=== PATIENT | female | born 1955 ===

== ENCOUNTER 2017-12-06 08:19 | Emergency (ER) | payer OTHER ==
--- NOTE | ~2017-12-06 | EKG ---
[place], [place] ELECTROCARDIOGRAM REPORT NAME: JUNIOR WELDON UNIT #: [id number] ROOM: DOCTOR: JOHNSON DRAFT REPORT BIRTHDATE: [birth year] [facility] Test Date: 2017-12-06 Test Time: 08:38:25 Pat Name: JUNIOR WELDON Department: Room: Gender: F Manager Hardware: Stella Lentz : 1955 Requested By: ANTOINETTE REAL Order Number: [id number] Reading MD: Remigio Cortes MD Measurements Intervals [place] Rate: 71 P: 22 CT: 148 QRS: -21 QRSD: 96 T: 93 QT: 369 QTc: 401 Interpretive Statements Sinus rhythm Borderline left axis deviation Abnormal R-wave progression, late transition Borderline T wave abnormalities Electronically Signed On 12-06-2017 12:48:43 PDT by Remigio Cortes MD CM:EKGRPT:ELECTROCARDIOGRAM REPORT [id number] ANTOINETTE REAL MD EPIPHADRIAN DRAFT REPORT ANTOINETTE REAL MD
[2017-12-06 08:40] LABS: BASO % 0.2 % (0.0-1.0); EOS # 0.1 10*3/uL (0.0-0.4); EOS % 0.6 % (1.0-4.0); HEMATOCRIT 49.8 % (37.0-47.0); HEMOGLOBIN 16.2 g/dl (12.0-16.0); LYMPH # 1.8 10*3/uL (1.3-4.4); LYMPH % 17.7 % (27.0-41.0); MEAN CELL VOLUME 90.2 fl (81.0-99.0); MEAN CORPUSCULAR HGB 29.3 pg (27.0-31.0); MEAN CORPUSCULAR HGB CONC 32.5 g/dl (33.0-37.0); MEAN PLATELET VOLUME 10.3 fl (9.6-12.3); MONO # 0.3 10*3/uL (0.1-1.0); MONO % 2.6 % (3.0-9.0); NEUT # 8.1 10*3/uL (2.3-7.9); NEUT % 78.7 % (47.0-73.0); PLATELET COUNT AUTOMATED 292 10*3/uL (130-400); RED BLOOD COUNT 5.52 10*6/uL (4.10-5.10); RED CELL DISTRI WIDTH 12.8 % (0-14.5); WHITE BLOOD COUNT 10.2 10*3/uL (4.8-10.8)
[2017-12-06 08:49] LABS: ACT PARTIAL THROMBO TIME 22.5 SECONDS (20.8-31.5)
[2017-12-06 08:57] LABS: ALBUMIN 3.7 gm/dl (3.1-4.5); ALKALINE PHOSPHATASE 83 U/L (45-117); BUN 25 mg/dl (7-24); CHLORIDE 109 mmol/L (98-107); CREATININE 0.94 mg/dL (0.55-1.02); POTASSIUM 4.1 mmol/L (3.5-5.1); SGOT/AST 21 IU/L (3-35); SGPT/ALT 35 U/L (12-78); SODIUM 143 mmol/L (136-145); TOTAL PROTEIN 7.1 gm/dL (6.4-8.2)
[2017-12-06 08:59] LABS: TROPONIN I < 0.015 ng/ml (<0.045)
[2017-12-06 08:59] LABS: BILIRUBIN NEGATIVE (NEGATIVE); BLOOD NEGATIVE (NEGATIVE); CLARITY SL CLOUDY (CLEAR); COLOR YELLOW (YELLOW); GLUCOSE NEGATIVE (NEGATIVE); KETONE TRACE (NEGATIVE); LEUKO ESTERASE NEGATIVE (NEGATIVE); NITRITE NEGATIVE (NEGATIVE); PH 5.5 (5.0-9.0); SPECIFIC GRAVITY >= 1.030 (1.005-1.030); UROBILINOGEN 0.2 E.U./dl (0.2-1.0)
[2017-12-06 09:05] LABS: BACTERIA TRACE; CALCIUM OXALATE CRYSTALS 1+; EPITHELIAL CELLS 16-20; MUCOUS 1+
== END 2017-12-06 10:30 | disposition home or self-care (01) ==
LOC: ED 08:19
PROVIDERS: Emergency Medicine
DX: S00.83XA Contusion of other part of head, initial encounter (principal); R55 Syncope and collapse; E86.0 Dehydration; W22.8XXA Striking against or struck by other objects, initial encounter; Y93.89 Activity, other specified; Y92.89 Other specified places as the place of occurrence of the external cause; Y99.8 Other external cause status

== ENCOUNTER → 2022-04-07 | Outpatient (CLI) | payer MEDICARE, OTHER | END | disposition home or self-care (01) | LOC: RESCLI 13:08 | PROVIDERS: ATTEND Internal Medicine | DX: G43.909 Migraine, unspecified, not intractable, without status migrainosus (principal); I10 Essential (primary) hypertension; F32.9 Major depressive disorder, single episode, unspecified; Z82.49 Family history of ischemic heart disease and other diseases of the circulatory system; Z98.890 Other specified postprocedural states; Z79.899 Other long term (current) drug therapy ==

== ENCOUNTER → 2023-04-21 | Outpatient (CLI) | payer MEDICARE, OTHER | END | disposition home or self-care (01) | LOC: RESCLI 10:43 | PROVIDERS: ATTEND Student in an Organized Health Care Education/Training Program | DX: E28.2 Polycystic ovarian syndrome (principal); K76.0 Fatty (change of) liver, not elsewhere classified; I10 Essential (primary) hypertension; G43.909 Migraine, unspecified, not intractable, without status migrainosus; F32.9 Major depressive disorder, single episode, unspecified; Z79.899 Other long term (current) drug therapy; Z98.890 Other specified postprocedural states; Z82.49 Family history of ischemic heart disease and other diseases of the circulatory system; Z83.3 Family history of diabetes mellitus ==

== ENCOUNTER 2023-05-17 15:19 | Emergency (ER) | payer MEDICARE, OTHER ==
[~2023-05-17] VITALS: Ht 170.1 cm; Wt 83.9 kg
[2023-05-17] MEDS ORDERED: SODIUM CHLORIDE 0.9% 1,000 ML IV ONE (15:40)
[2023-05-17 15:53] LABS: BILIRUBIN Negative (Negative); BLOOD 3+ (Negative); CLARITY Clear (Clear); COLOR Yellow (Yellow); GLUCOSE Negative (Negative); KETONE 3+ (Negative); LEUKO ESTERASE Negative (Negative); NITRITE Negative (Negative); UROBILINOGEN 0.2 E.U./dl (0.0-1.0)
[2023-05-17 15:55] LABS: BASO % 0.4 % (0.0-1.0); EOS % 0.4 % (1.0-4.0); HEMATOCRIT 46.1 % (37.0-47.0); LYMPH # 0.8 10*3/uL (1.3-4.4); LYMPH % 8.5 % (27.0-41.0); MEAN CELL VOLUME 90.2 fl (81.0-99.0); MEAN CORPUSCULAR HGB 28.4 pg (27.0-31.0); MEAN CORPUSCULAR HGB CONC 31.5 g/dl (33.0-37.0); MEAN PLATELET VOLUME 9.8 fl (9.6-12.3); MONO # 0.4 10*3/uL (0.1-1.0); MONO % 4.3 % (3.0-9.0); NEUT # 8.2 10*3/uL (2.3-7.9); NEUT % 86.1 % (47.0-73.0); PLATELET COUNT AUTOMATED 280 10*3/uL (130-400); RED BLOOD COUNT 5.11 10*6/uL (4.10-5.10); RED CELL DISTRI WIDTH 14.3 % (0-14.5); WHITE BLOOD COUNT 9.6 10*3/uL (4.8-10.8)
[2023-05-17 16:11] LABS: BACTERIA 1+; MUCOUS 1+; RBC TNTC rbc/hpf (0-2)
[2023-05-17] MEDS ORDERED: MORPHINE Sulfate 2 MG/ML SYR IV ONE ×2 (16:15→17:15)
[2023-05-17 16:16] LABS: ALKALINE PHOSPHATASE 59 U/L (46-116); BUN 11 mg/dl (9-23); CHLORIDE 100 mmol/L (98-107); LIPASE 44 U/L (12-53); POTASSIUM 3.5 mmol/L (3.4-5.1); SGPT/ALT 17 U/L (5-49); TOTAL PROTEIN 7.2 gm/dL (6.0-8.0)
[2023-05-17] MEDS ORDERED: Ondansetron Hydrochloride 4 MG/2 ML VIAL IV ONE (16:30)
[2023-05-17] MEDS ORDERED: HYDROCODONE-AC1 EAC1 PO (17:15)
[2023-05-17] MEDS ORDERED: ONDANSETRON4 MG SL (17:15)
[2023-05-17] MEDS ORDERED: FLOMAX0.4 MG PO (17:15)
[2023-05-17] MEDS ORDERED: SEPTDS PO (17:15)
[2023-05-17] MEDS ORDERED: HYDROmorphONE Hydrochloride 1 MG/ML SYR IV ONE (17:55)
[2023-05-17] MEDS ORDERED: Acetaminophen/Hydrocodone 5 MG/325 MG TABLET PO ONE (18:10)
== END 2023-05-17 18:32 | disposition home or self-care (01) ==
LOC: ED 15:19
PROVIDERS: Physician Assistant Medical
DX: N20.9 Urinary calculus, unspecified (principal); I10 Essential (primary) hypertension; G43.909 Migraine, unspecified, not intractable, without status migrainosus

== ENCOUNTER 2023-05-18 00:47 | Emergency (ER) | payer MEDICARE, OTHER ==
[~2023-05-18] VITALS: Ht 170.1 cm; Wt 83.9 kg
[~2023-05-18 00:47] MED LIST: FLOMAX0.4 MG PO; HYDROCODONE-AC1 EAC1 PO; ONDANSETRON4 MG SL; SEPTDS PO
[2023-05-18] MEDS ORDERED: Ondansetron Hydrochloride 4 MG/2 ML VIAL IV ONE (01:10)
[2023-05-18] MEDS ORDERED: Ketorolac Tromethamine 30 MG/ML VIAL IV ONE (01:10)
[2023-05-18] MEDS ORDERED: HYDROmorphONE Hydrochloride 1 MG/ML SYR IV ONE (02:25)
== END 2023-05-18 03:43 | disposition short-term general hospital (02) ==
LOC: ED 00:47
DX: N13.2 Hydronephrosis with renal and ureteral calculous obstruction (principal); N13.4 Hydroureter; E87.1 Hypo-osmolality and hyponatremia; G43.909 Migraine, unspecified, not intractable, without status migrainosus; I10 Essential (primary) hypertension